=== PATIENT | female | born 1985 | race Caucasian/White ===

== ENCOUNTER 2024-05-19 20:05 | Emergency (ER) | payer BC ==
--- NOTE | 2024-05-19 21:05 | ER ---
Nurse's Notes [facility] Name: Nicky Obregon Age: 38 yrs Sex: Female : 1985 Arrival Date: 05/19/2024 Time: 20:05 Bed DX3 Private MD: Diagnosis: Fall on same level, unspecified;Other internal derangements of left knee;Pain in left knee Presentation: 05/19 20:17 Chief complaint: Patient states: Left knee pain X2 weeks s/p fall. Pt states that the cm10 pain is not improving and now she feels something pop when she walks. Coronavirus screen: Client denies travel out of the [place] in the last 14 days. Ebola Screen: Patient denies travel to an Ebola-affected area in the 21 days before illness onset. No symptoms or risks identified at this time. Initial Sepsis Screen: Does the patient meet any 2 criteria? No. Patient's initial sepsis screen is negative. Does the patient have a suspected source of infection? No. Patient's initial sepsis screen is negative. Risk Assessment: Do you want to hurt yourself or someone else? Patient reports no desire to harm self or others. Onset of symptoms was May 19, 2024. 20:17 Method Of Arrival: Ambulatory cm10 20:17 Acuity: JASMIN 4 cm10 Triage Assessment: 20:18 General: Appears in no apparent distress. uncomfortable, Behavior is calm, cooperative. cm10 Neuro: No deficits noted. Level of Consciousness is awake, alert, obeys commands, Oriented to person, place, time, situation, Appropriate for age. Respiratory: No deficits noted. Airway is patent Respiratory effort is even, unlabored, Respiratory pattern is regular, symmetrical. Historical: - Allergies: 20:15 Ceftin; cm10 20:15 Naproxen; cm10 - Home Meds: 20:15 bupropion HCl 150 mg oral Tablet, Extended Release 24 hr 1 tab daily [Active]; cm10 quetiapine 25 mg oral tablet 1 tab daily [Active]; Vraylar 3 mg oral capsule 1 cap daily [Active]; - PMHx: 20:15 Depressive disorder; Anxiety; cm10 - PSHx: 20:15 Ligation of fallopian tube; cm10 - Immunization history:: Adult Immunizations up to date. - Infectious Disease History:: Denies. - Social history:: Smoking status: Patient denies any tobacco usage or history of. Screenin:38 [facility] ED Fall Risk Assessment (Adult) History of falling in the last 3 months, vc1 including since admission No falls in past 3 months (0 pts) Confusion or Disorientation No (0 pts) Intoxicated or Sedated No (0 pts) Impaired Gait No (0 pts) Mobility Assist Device Used No (0 pt) Altered Elimination No (0 pt) Score/Fall Risk Level 0 - 2 = Low Risk Oriented to surroundings, Maintained a safe environment, Educated pt \T\ family on fall prevention, incl call for assistance when getting out of bed. Abuse screen: Denies threats or abuse. Nutritional screening: No deficits noted. Tuberculosis screening: No symptoms or risk factors identified. Vital Signs: 20:17 BP 132 / 86; Pulse 89; Resp 16; Temp 98(TE); Pulse Ox 100% on R/A; Weight 136.08 kg; cm10 Height 5 ft. 8 in. ; Pain 7/10; 20:17 Body Mass Index 45.61 (136.08 kg, 172.72 cm) cm10 20:17 Pain Scale: Adult cm10 ED Course: 20:08 Patient arrived in ED. ra3 20:18 Triage completed. cm10 20:18 Arm band placed on right wrist. Patient placed in waiting room. cm10 20:33 Davide Luna MD is Attending Physician. sarah 21:04 Ventura Wolf MD is Referral Physician. sarah 21:13 Knee Left 3 View XRAY In Process Unspecified. EDMS 21:40 Patient has correct armband on for positive identification. Bed in low position. Call vc1 light in reach. Provided Education on: F/U WITH PCP, PT REFUSED CRUTCH TRAINING. SEEN IN DIAGNOSTIC CHAIR. 21:53 No provider procedures requiring assistance completed. Patient did not have IV access vc1 during this emergency room visit. Administered Medications: No medications were administered Medication: 21:53 VIS not applicable for this client. vc1 Outcome: 21:04 Discharge ordered by . sarah 21:53 Discharged to home ambulatory, vc1 21:53 Condition: good 21:53 Discharge instructions given to patient, Instructed on discharge instructions, follow up and referral plans. Demonstrated understanding of instructions, follow-up care, 21:53 Patient left the ED. vc1 Signatures: Dispatcher [employer] Davide Pat MD MD cha Calcote, Vanessa RN RN vc1 Ariadna Martino RN RN cm10 Cristina Whalen ra3 Corrections: (The following items were deleted from the chart) 20:17 20:15 Home Meds: ampicillin 500 mg Oral cap 1 cap every 6 hours; cm10 cm10
--- NOTE | 2024-05-19 21:06 | EDPHYS ---
Physician Documentation [facility] Name: Nicyk Obregon Age: 38 yrs Sex: Female : 1985 Arrival Date: 05/19/2024 Time: 20:05 Bed DX3 Private MD: ED Physician Davide Luna HPI: 05/19 20:57 This 38 yrs old Female presents to ER via Ambulatory with complaints of Fall sarah Injury, Knee Injury - Left with popping. Historical: - Allergies: 20:15 Ceftin; cm10 20:15 Naproxen; cm10 - Home Meds: 20:15 bupropion HCl 150 mg oral Tablet, Extended Release 24 hr 1 tab daily [Active]; cm10 quetiapine 25 mg oral tablet 1 tab daily [Active]; Vraylar 3 mg oral capsule 1 cap daily [Active]; - PMHx: 20:15 Depressive disorder; Anxiety; cm10 - PSHx: 20:15 Ligation of fallopian tube; cm10 - Immunization history:: Adult Immunizations up to date. - Infectious Disease History:: Denies. - Social history:: Smoking status: Patient denies any tobacco usage or history of. ROS: 20:57 Constitutional: Negative for fever, chills, and weight loss, Eyes: Negative for injury, sarah pain, redness, and discharge, ENT: Negative for injury, pain, and discharge, Neck: Negative for injury, pain, and swelling, Cardiovascular: Negative for chest pain, palpitations, and edema, Respiratory: Negative for shortness of breath, cough, wheezing, and pleuritic chest pain, Abdomen/GI: Negative for abdominal pain, nausea, vomiting, diarrhea, and constipation, Back: Negative for injury and pain, : Negative for injury, bleeding, discharge, and swelling, Skin: Negative for injury, rash, and discoloration, Neuro: Negative for headache, weakness, numbness, tingling, and seizure, Psych: Negative for depression, anxiety, suicide ideation, homicidal ideation, and hallucinations, Allergy/Immunology: Negative for hives, rash, and allergies, Endocrine: Negative for neck swelling, polydipsia, polyuria, polyphagia, and marked weight changes, Hematologic/Lymphatic: Negative for swollen nodes, abnormal bleeding, and unusual bruising, 20:57 MS/extremity: Positive for decreased range of motion, pain, tenderness, of the left knee, Exam: 20:57 Constitutional: This is a well developed, well nourished patient who is awake, alert, sarah and in no acute distress. Head/Face: Normocephalic, atraumatic. Eyes: Pupils equal round and reactive to light, extra-ocular motions intact. Lids and lashes normal. Conjunctiva and sclera are non-icteric and not injected. Cornea within normal limits. Periorbital areas with no swelling, redness, or edema. ENT: Nares patent. No nasal discharge, no septal abnormalities noted. Tympanic membranes are normal and external auditory canals are clear. Oropharynx with no redness, swelling, or masses, exudates, or evidence of obstruction, uvula midline. Mucous membranes moist. Neck: Trachea midline, no thyromegaly or masses palpated, and no cervical lymphadenopathy. Supple, full range of motion without nuchal rigidity, or vertebral point tenderness. No Meningismus. Chest/axilla: Normal chest wall appearance and motion. Nontender with no deformity. No lesions are appreciated. Cardiovascular: Regular rate and rhythm with a normal S1 and S2. No gallops, murmurs, or rubs. Normal PMI, no JVD. No pulse deficits. Respiratory: Lungs have equal breath sounds bilaterally, clear to auscultation and percussion. No rales, rhonchi or wheezes noted. No increased work of breathing, no retractions or nasal flaring. Abdomen/GI: Soft, non-tender, with normal bowel sounds. No distension or tympany. No guarding or rebound. No evidence of tenderness throughout. Back: No spinal tenderness. No costovertebral tenderness. Full range of motion. Female : Normal external genitalia. Skin: Warm, dry with normal turgor. Normal color with no rashes, no lesions, and no evidence of cellulitis. Neuro: Awake and alert, GCS 15, oriented to person, place, time, and situation. Cranial nerves II-XII grossly intact. Motor strength 5/5 in all extremities. Sensory grossly intact. Cerebellar exam normal. Normal gait. Psych: Awake, alert, with orientation to person, place and time. Behavior, mood, and affect are within normal limits. 20:57 Musculoskeletal/extremity: Extremities: grossly normal except: noted in the left knee: decreased ROM, pain, ROM: limited active range of motion due to pain, limited passive range of motion due to pain, Circulation is intact in all extremities. Sensation intact. Compartment Syndrome exam of affected extremity: is normal. DVT Exam: pain, swelling, tenderness, of the left leg, of the left knee, Vital Signs: 20:17 BP 132 / 86; Pulse 89; Resp 16; Temp 98(TE); Pulse Ox 100% on R/A; Weight 136.08 kg; cm10 Height 5 ft. 8 in. ; Pain 7/10; 20:17 Body Mass Index 45.61 (136.08 kg, 172.72 cm) cm10 20:17 Pain Scale: Adult cm10 MDM: 20:34 Medical Screening Exam initiated sarah 21:00 Differential diagnosis: contusion, fracture, sprain, strain. Data reviewed: vital sarah signs, nurses notes, radiologic studies, plain films. Consideration of Admission/Observation Escalation of care including admission/observation considered. I considered the following discharge prescriptions or medication management in the emergency department Medications were administered in the Emergency Department. See MAR. Independent interpretation of the following test(s) in the Emergency Department EKG: See my EKG interpretation above. Test considered but Not performed: X-ray: left knee . Historians other than the Patient: pt well informed. Care significantly affected by the following chronic conditions: Obesity, depression, anxiety. 05/19 20:19 Order name: Knee Left 3 View XRAY; Complete Time: 21:25 cm10 05/19 20:36 Order name: Knee Immobilizer; Complete Time: 21:43 sarah 05/19 20:36 Order name: Ice pack; Complete Time: 20:50 sarah 05/19 20:57 Order name: Crutches; Complete Time: 21:43 sarah Administered Medications: No medications were administered Disposition Summary: 05/19/24 21:04 Discharge Ordered Notes: Location: Home sarah Problem: new sarah Symptoms: have improved sarah Condition: Stable sarah Diagnosis - Fall on same level, unspecified sarah - Other internal derangements of left knee sarah - Pain in left knee sarah Followup: sarah - With: Private Physician - When: 2 - 3 days - Reason: Recheck today's complaints, Continuance of care, Re-evaluation by your physician Followup: sarah - With: Ventura Wolf MD - When: 2 - 3 days - Reason: Recheck today's complaints, Re-evaluation by your physician Discharge Instructions: - Discharge Summary Sheet sarah - Joint Pain sarah - How to Use a Knee Brace sarah - How to Use a Knee Immobilizer sarah - Musculoskeletal Pain sarah - Acute Knee Pain, Adult sarah - How to Use Cold Therapy, [id number] sarah - How to Use a Knee Immobilizer, [id number] sarah - How to Use Cold Therapy sarah - Acute Knee Pain, Adult, [id number] [facility] Forms: - Medication Reconciliation Form sarah - Antibiotic Education sarah - Prescription Opioid Use sarah - Patient Portal Instructions sarah - Leadership Thank You Letter [facility] Signatures: Dispatcher [employer] EDDavide Rodriguez MD MD cha Martinez, Clarissa RN RN cm10 Corrections: (The following items were deleted from the chart) 20:17 20:15 Home Meds: ampicillin 500 mg Oral cap 1 cap every 6 hours; cm10 cm10 20:19 20:19 Knee Left 3 View+RAD.RAD.BRZ ordered. EDKS EDMS
--- NOTE | 2024-05-19 21:21 | RAD REPORT ---
EXAM: Knee Left 3 View INDICATION: PAIN COMPARISON: None FINDINGS: No acute fracture. Small nonspecific knee effusion. No significant focal degenerative changes. Other: n/a IMPRESSION: No evidence of acute osseous abnormality involving the imaged knee.
[2024-05-20 03:46] VITALS: BP 132/86; TEMP 98; O2SAT 100
== END 2024-05-19 21:53 | disposition home or self-care (01) ==
LOC: ER 20:05
DX: M23.8X2 Other internal derangements of left knee (principal); W18.30XA Fall on same level, unspecified, initial encounter
CPT/HCPCS: 99282